=== PATIENT | female | born 2000 | race Native Hawaiian/Other Pacific Islander ===

== ENCOUNTER → 2022-11-15 08:26 | Outpatient (CLI) | payer BC, SELFPAY ==
[2022-11-15 09:15] LABS: Add Manual Diff / Slide Review NO; Basophils Absolute Auto 100 /uL (0-100); Basophils Percent Auto 1.1 % (0-2); Eosinophils Absolute Auto 100 /uL (0-450); Eosinophils Percent Auto 2.2 % (2-4); Hemoglobin 11.2 g/dL (12.0-16.0); Lymphocytes Absolute Auto 1600 /uL (1100-4500); Lymphocytes Percent Auto 24.8 % (25-40); Mean Corpuscular HGB Conc 31.2 % (30-36); Mean Corpuscular Hemoglobin 22.7 PG (26-34); Mean Corpuscular Volume 72.8 fL (80-100); Monocytes Absolute Auto 400 /uL (0-900); Monocytes Percent Auto 6.8 % (3-14); Neutrophils Absolute Auto 4200 /uL (1500-7000); Neutrophils Percent Auto 65.1 % (50-75); Platelet Count 369 X10^3/uL (150-400); Red Blood Cell Count 4.95 X10^6/uL (4.0-5.2); Red Cell Distribution Width 15.7 % (11.6-14.8); White Blood Cell Count 6.4 X10^3/uL (4.5-11.0)
[2022-11-15 09:58] LABS: Alanine Aminotransferase 15 IU/L (<35); Albumin 4.5 g/dL (3.5-5.0); Albumin Globulin Ratio 1.3 (1.0-2.8); Alkaline Phosphatase 47 U/L (38-126); Aspartate Aminotransferase 24 IU/L (14-36); BUN Creatinine Ratio 33.3 (6-22); Bilirubin Total 0.5 mg/dL (0.2-1.3); Blood Urea Nitrogen 18 mg/dL (7-17); Carbon Dioxide 27 mmol/L (22-32); Chloride 103 mmol/L (98-107); Cholesterol 185 mg/dL (140-199); Estimated Glomerular Filt Rate > 60 mL/min (>60); Globulin 3.5 g/dL (1.7-4.1); Glucose 92 mg/dL (70-100); HDL Cholesterol 73 mg/dL (40-60); HEMOLYSIS 24 (0-50); LDL Cholesterol Calculated 102 mg/dL (<100); Potassium 4.5 mmol/L (3.4-5.1); Sodium 138 mmol/L (137-145); Triglycerides 49 mg/dL (35-150)
[2022-11-15 10:27] LABS: TSH w/ Reflex to FT4 1.08 uIU/mL (0.47-4.68)
== END ==
PROVIDERS: PCP Family Medicine; Referring Provider Family Medicine; Visit Provider Family Medicine
DX: Z00.00 Encounter for general adult medical examination without abnormal findings (principal); N92.6 Irregular menstruation, unspecified
CPT/HCPCS: 36415; 80053; 80061; 84443; 85025

== ENCOUNTER → 2023-01-23 08:57 | Outpatient (CLI) | payer BC, SELFPAY ==
--- NOTE | 2023-01-23 08:58 | DI.US.S_ITS ---
PROCEDURE: US OB <= 14 WEEKS FETUS INDICATIONS: DATES OUTSIDE/PRIOR DATING DATA: Last menstrual period (LMP): 11/17/2022. LMP-based estimated date of delivery (DAYSI): 08/24/2023. First dating scan (date and location): 01/23/2023. Estimated date of delivery (DAYSI) from first dating scan: 08/24/2023. The calculations are made using the working DAYSI of 08/24/2023. TECHNIQUE: Real-time scanning was performed of the fetus and maternal pelvic organs, with image documentation. Endovaginal scanning was also performed to better visualize the fetus and maternal ovaries. COMPARISON: None. FINDINGS: Embryo: [place]-rump length 2.7 cm corresponds with a 9 week 4 day gestation Heart rate: 158 beats per minute Maternal organs: Ovaries corpus luteum cyst noted on the right. IMPRESSION: Single live intrauterine consistent with a 9 week 4 day gestation. Approved by: Forrest Kim M.D. on 01/23/2023 at 16:07
== END ==
PROVIDERS: PCP Family Medicine; Referring Provider Obstetrics & Gynecology; Visit Provider Obstetrics & Gynecology
DX: Z34.01 Encounter for supervision of normal first pregnancy, first trimester (principal); Z3A.09 9 weeks gestation of pregnancy
CPT/HCPCS: 76801; 76817

== ENCOUNTER → 2023-02-13 15:58 | Outpatient (CLI) | payer BC, SELFPAY ==
[2023-02-13 16:17] LABS: Specimen Label Y
[2023-02-13 16:47] LABS: Add Manual Diff / Slide Review NO; Basophils Absolute Auto 100 /uL (0-100); Basophils Percent Auto 0.7 % (0-2); Eosinophils Absolute Auto 100 /uL (0-450); Hemoglobin 12.3 g/dL (12.0-16.0); Lymphocytes Absolute Auto 1700 /uL (1100-4500); Lymphocytes Percent Auto 16.8 % (25-40); Mean Corpuscular HGB Conc 33.3 % (30-36); Mean Corpuscular Volume 81.2 fL (80-100); Monocytes Absolute Auto 700 /uL (0-900); Monocytes Percent Auto 6.5 % (3-14); Neutrophils Absolute Auto 7800 /uL (1500-7000); Platelet Count 273 X10^3/uL (150-400); Red Blood Cell Count 4.55 X10^6/uL (4.0-5.2); Red Cell Distribution Width 17.5 % (11.6-14.8); White Blood Cell Count 10.4 X10^3/uL (4.5-11.0)
[2023-02-14 08:11] LABS: RPR Screen Non Reactive (Non Reactive)
[2023-02-14 09:40] LABS: Varicella IgG Antibody 590 index (Immune >165)
[2023-02-16 17:28] LABS: Hepatitis B Surface Antigen NEGATIVE s/c (NEGATIVE); Rubella Antibody IgG 53.8 IU/mL (>15)
[2023-02-16 17:46] LABS: HIV 1 & 2 Ab/Ag 4th Gen Combo NEGATIVE (NEGATIVE); Hep C Virus Ab w/Reflex Quant NEGATIVE s/c (NEGATIVE)
== END ==
PROVIDERS: PCP Family Medicine; Referring Provider Obstetrics & Gynecology; Visit Provider Obstetrics & Gynecology
DX: Z34.01 Encounter for supervision of normal first pregnancy, first trimester (principal)
CPT/HCPCS: 36415; 80055; 86787; 86803; 86850; 86900; 86901; 87086; 87389

== ENCOUNTER → 2023-03-13 13:54 | Outpatient (CLI) | payer BC, SELFPAY ==
[2023-03-15 21:29] LABS: AFP Value 37.4 ng/mL (.); Gest Age on Col Date 16.6 weeks (.); Insulin Dep Diabetes No (.); OSBR Risk 1IN 10000 (.); Results Report (.); Test Results *Screen Negative* (.)
[2023-03-16 13:47] LABS: PDF SCANNED
== END ==
PROVIDERS: PCP Family Medicine; Referring Provider Obstetrics & Gynecology; Visit Provider Obstetrics & Gynecology
DX: Z34.92 Encounter for supervision of normal pregnancy, unspecified, second trimester (principal)
CPT/HCPCS: 82105

== ENCOUNTER → 2023-04-18 12:09 | Outpatient (CLI) | payer BC, SELFPAY ==
--- NOTE | 2023-04-18 12:10 | DI.US.S_ITS ---
PROCEDURE: US OB >= 14 WEEKS FETUS INDICATIONS: ANATOMY OUTSIDE/PRIOR DATING DATA: Last menstrual period (LMP): 11/17/2022. LMP-based estimated date of delivery (DAYSI): 08/24/2023. First dating scan (date and location): 01/23/2023. Estimated date of delivery (DAYSI) from first dating scan: 08/24/2023. The calculations are made using the clinical DAYSI of 08/24/2023. TECHNIQUE: Real-time scanning was performed of the fetus, with image documentation and biometric measurements. Endovaginal scanning: No COMPARISON: None. FINDINGS: General: A single living intrauterine gestation is present. Presentation: Breech. Placenta: Placental position is fundal , without previa. Amniotic fluid index: 13.7 cm, normal range is 5-24 cm. Single deepest vertical pocket is 4.8 cm. heart rate: 139 beats per minute. Maternal cervical canal: 3.1 cm long. Normal lower limit is 2.5 cm. biometrics: Biparietal diameter: 5.0 cm, 21 week 1 day Head circumference: 19.7 cm, 21 week 6 day Abdominal circumference: 17.3 cm, 22 week 1 day Femur length: 3.5 cm, 21 week 1 day Clinically estimated gestational age: 21 week 5 day Composite gestational age from present scan: 21 week 5 day Estimated weight and percentile: 445 g, 44th percentile Anatomic survey: Neuro: Ventricles are non-dilated at less than 10 mm. Cisterna magna is normal at 3-11 mm. Cerebellum is normal in size and morphology. Nuchal skin fold: Normal at less than 6 mm between 14-21 weeks gestational age. Face: Nose and lips, facial profile are normal. Spine: No evidence for spina bifida. Heart: 4-chambered heart is present, with normal ventricular outflow tracts. Diaphragm: Diaphragm is intact. Stomach: Left-sided stomach is present. Kidneys: No hydronephrosis. Normal is less than 5 mm in 2nd trimester, less than 7 mm in 3rd trimester. Cord: 3-vessel cord has orthotopic insertion. Bladder: Normal in size. Extremities: All 4 extremities identified. IMPRESSION: Single live intrauterine consistent with a 21 week 5 day gestation. Normal anatomic survey Approved by: Forrest Kim M.D. on 04/18/2023 at 17:44
== END ==
PROVIDERS: PCP Family Medicine; Referring Provider Obstetrics & Gynecology; Visit Provider Obstetrics & Gynecology
DX: Z34.02 Encounter for supervision of normal first pregnancy, second trimester (principal); Z3A.21 21 weeks gestation of pregnancy
CPT/HCPCS: 76811

== ENCOUNTER → 2023-05-15 11:33 | Outpatient (CLI) | payer BC, SELFPAY ==
[2023-05-15 13:34] LABS: Hematocrit 36.8 % (36-46); Hemoglobin 12.4 g/dL (12.0-16.0)
[2023-05-15 14:50] LABS: GTT (PREG) 1 Hour PP 50gm Dose 93 mg/dL (76-139)
== END ==
PROVIDERS: PCP Family Medicine; Referring Provider Obstetrics & Gynecology; Visit Provider Obstetrics & Gynecology
DX: Z34.02 Encounter for supervision of normal first pregnancy, second trimester (principal); Z3A.26 26 weeks gestation of pregnancy
CPT/HCPCS: 36415; 82950; 85014; 85018

== ENCOUNTER → 2023-07-31 13:53 | Outpatient (CLI) | payer BC, SELFPAY ==
[2023-08-01 12:47] LABS: Strep Grp B PCR NEG for Grp B Strep
== END ==
PROVIDERS: PCP Family Medicine; Visit Provider Obstetrics & Gynecology
DX: Z34.03 Encounter for supervision of normal first pregnancy, third trimester (principal); Z3A.36 36 weeks gestation of pregnancy
CPT/HCPCS: 87653

== ENCOUNTER 2023-08-19 22:58 | Inpatient (IN) | payer BC, SELFPAY ==
[2023-08-19 23:03] VITALS: BP 107/70
[2023-08-19 23:53] LABS: Add Manual Diff / Slide Review NO; Basophils Absolute Auto 100 /uL (0-100); Basophils Percent Auto 0.9 % (0-2); Eosinophils Absolute Auto 100 /uL (0-450); Eosinophils Percent Auto 0.7 % (2-4); Hematocrit 42.5 % (36-46); Lymphocytes Absolute Auto 1700 /uL (1100-4500); Lymphocytes Percent Auto 16.4 % (25-40); Mean Corpuscular Hemoglobin 27.9 PG (26-34); Mean Corpuscular Volume 84.5 fL (80-100); Monocytes Absolute Auto 900 /uL (0-900); Neutrophils Absolute Auto 7400 /uL (1500-7000); Platelet Count 279 X10^3/uL (150-400); Red Blood Cell Count 5.03 X10^6/uL (4.0-5.2); Red Cell Distribution Width 14.4 % (11.6-14.8); White Blood Cell Count 10.2 X10^3/uL (4.5-11.0)
[2023-08-20] MEDS: ONDANSETRON 4 MG/2 ML INJ IV (01:15)
[2023-08-20] MEDS: LACTATED RINGERS 1,000 ML 100 ML IV ×2 (01:18→01:19)
--- NOTE | 2023-08-20 01:43 | PM.AN.REGBLK ---
Regional Block Pre-procedure Procedure: Continuous Lumbar Epidural for L&D Attending OB provider: Isela Chowdary PMH/ROS narrative: 38/4 healthy 23yo female. Hx: No personal or family history of anesthesia problems. PSH/Anesthesia history narrative: No PSH, no anesthesia reaction in the family. ASA Class: II Labs: Hct 42.5 % (36-46) 08/19/23 23:35 Plt Count 279 X10^3/uL (150-400) 08/19/23 23:35 Medications: Current Medications Generic Name Dose Route Start Last Admin Trade Name Freq PRN Reason Stop Dose Admin Calcium Carbonate 1,000 mg 08/19/23 23:22 Calcium Carbonate 500 Mg Tab PO Q4HR PRN Dyspepsia Carboprost Tromethamine 250 mcg 08/19/23 23:22 Carboprost 250 Mcg/Ml Ampul IM Q90M PRN Bleeding Diphenhydramine HCl 25 mg 08/20/23 01:39 Diphenhydramine 50 Mg/Ml Vial IV Q10M PRN Pruritis Ephedrine Sulfate 5 mg 08/20/23 01:39 Ephedrine 50 Mg/Ml Vial IV Q5M PRN Blood pressure decrease more than 20% of baseline. Fentanyl 50 mcg 08/19/23 23:22 Fentanyl 100 Mcg/2 Ml Inj IV Q1H PRN Pain, Moderate (4-6) Lactated Ringer's 1,000 mls @ 100 mls/hr 08/19/23 23:30 08/20/23 01:19 Lactated Ringers IV 100 mls/hr CONT LELA Administration Oxytocin/Lactated Ringer's 30 unit in 500 mls @ 200 mls/hr 08/19/23 23:22 Oxytocin Premix IV CONT PRN Bleeding Protocol Tranexamic Acid 1,000 mg/ 100 mls @ 200 mls/hr 08/19/23 23:22 Sodium Chloride IV NOW PRN Bleeding FENT 2MCG/ML BUPIV 0.125% EPI 200 mcg in 100 mls @ 6 mls/hr 08/20/23 00:30 Fentanyl/Bupiv/Ns 2mcg/Ml - 0.125% EPIDURAL CONT LELA FENT 2MCG/ML BUPIV 0.125% EPI 200 mcg in 100 mls @ 3 mls/hr 08/20/23 01:45 Fentanyl/Bupiv/Ns 2mcg/Ml - 0.125% EPIDURAL CONT LELA Lidocaine HCl 20 ml 08/19/23 23:22 Lidocaine 1% 20 Ml INJ INTRA-OP PRN Post Delivery Methylergonovine Maleate 0.2 mg 08/19/23 23:22 Methylergonovine 0.2 Mg Tablet PO Q6HR PRN Heavy Bleeding Methylergonovine Maleate 0.2 mg 08/19/23 23:22 Methylergonovine 0.2 Mg/Ml Vial IM NOW PRN Bleeding Misoprostol 800 mcg 08/19/23 23:22 Misoprostol 200 Mcg Tablet CA NOW PRN Bleeding Misoprostol 400 mcg 08/19/23 23:22 Misoprostol 200 Mcg Tablet SL NOW PRN Bleeding Nalbuphine HCl 2.5 mg 08/20/23 01:39 Nalbuphine 20 Mg/Ml Ampul IV Q10M PRN Pruritis Naloxone HCl 0.2 mg 08/19/23 23:22 Naloxone 0.4 Mg/Ml Vial IV Q2MIN PRN Opiate Reversal Naloxone HCl 0.4 mg 08/20/23 00:18 Naloxone 0.4 Mg/Ml Vial IV Q2MIN PRN Opiate Reversal Ondansetron HCl 4 mg 08/19/23 23:22 08/20/23 01:15 Ondansetron 4 Mg/2 Ml Inj IV 4 mg Q4HR PRN Administration Nausea And Vomiting Oxytocin 10 unit 08/19/23 23:22 Oxytocin 10 Unit/Ml Vial IM NOW PRN Bleeding Allergies: Allergies Allergy/AdvReac Type Severity Reaction Status Date / Time No Known Drug Allergies Allergy Unverified 08/14/23 09:11 Procedure Insertion date: 08/20/23 Insertion time: 00:43 Prep/Local: betadine x3 and 1% lidocaine Interspace: L3-L4 Patient position: sitting Needle: 18 gauge [place] Loss of resistance with: saline (+Air) MARCIO at (cm): 7 Catheter placed at SKIN (cm): 14 Catheter in SPACE (cm): 7 Insertion: No CSF, No Blood, No Paresthesia with insertion, No Paresthesia with injection and No Test dose reaction Initial Medications TEST DOSE time: 00:43 BOLUS DOSE time: 00:44 BOLUS DOSE (mL): 3 BOLUS DOSE med: other (2% Lidocaine) Infusion INFUSION: 0.125% bupivacaine and with fentanyl 2 mcg/mL Initial rate (mL/hr): 3 Subsequent interventions: 0108: Ephedrine 10mg for hypotension. Post-procedure Anesthesia date START: 08/20/23 Anesthesia time START: 00:01 Anesthesia date END: 08/20/23 Anesthesia time END: 05:34 Post-procedure Anesthesia Assessment: Yes CV function: HR/BP stable, Yes Resp function: RR/sat/airway adequate, Yes Post-op hydration adequate, Yes Pain control adequate, Yes Nausea & vomiting absent, Yes Temperature > 36 C, Yes Mental status appropriate and Yes Anesthesia complications
[2023-08-20] MEDS: OXYTOCIN PREMIX 30 UNIT/500 ML PLAST..BAG 200 UNIT IV (05:35)
[2023-08-20] MEDS: LIDOCAINE 1% 20 ML INJ (05:40)
--- NOTE | 2023-08-20 06:03 | P.PCNOB_ITS ---
Labor & Delivery Delivery date: 08/20/23 Intrapartal Events: None Cervical ripening method: none Induction method: none Delivery monitor: external FHT and external uterine Route of delivery: Episiotomy description: None L&D Laceration Description: Perineal - 2nd Degree Quantitative Blood Loss: 200 Anesthesia Type: Epidural Complications: None Narrative: PROCEDURE: at 39w3d presented in active labor and was admitted to Labor and Delivery. The patient progressed through the 1st stage over 10.5 hours. Pt had SROM with clear fluid. Pain was controlled with an epidural. The patient progressed through the 2nd stage over 1 hour and delivered a viable female infant with APGARs 7/9 at 5:34 via without complications. The cord was cut and clamped after it stopped pulsating. The placenta delivered with gentle cord traction, and appeared complete. The perineum and vagina were inspected with 2nd degree perineal laceration repaired with 2-O Vicryl. Needle and sponge counts were correct.? The vagina was inspected and no items we re left in situ. Abida was doing well with Rona, her and her , Zack, at bedside. PREPROCEDURE DIAGNOSIS: Intrauterine at 39w3d GBS negative RH positive POSTPROCEDURE DIAGNOSIS: Intrauterine at 39w3d, delivered Same as preprocedure [place] Baby 1: Infant gender: Female Presentation: vertex Position: Right Occiput Anterior Placenta delivery description: Spontaneous Cord Vessel Description: 3 Vessels score (1 min): 7 score (5 min): 9 weight: 6 lb 12.538 oz Plan for aftercare: Routine care
--- NOTE | 2023-08-20 06:03 | P.HPOB_ITS ---
OB HPI Date/Time Date of admission: 08/20/23 Date Patient Seen: 08/20/23 History of Present Condition Chief complaint: Labor & Delivery DAYSI Calculator 2 Estimated Delivery Date Method Current WG Current Estimate 08/24/23 LMP (Certain) 39w 3d Other Estimates 08/24/23 Ultrasound #1 39w 3d Estimated Gestational Age (weeks): 39w3d : 1 Para: 0 Narrative: Pt is a 23yo at 39w3d here with regular contractions. Pt reports contractions starting earlier this evening, increasing in intensity since then. No bleeding or LOF. She is feeling her baby move regularly. No complications with her . care: good care, initiated at week # (12) and pounds weight gain (45) Dating criteria OB: LMP confirmed by 1st trimester US Ultrasounds: normal 1st trimester US and normal mid trimester US Obstetrical complications: none Medical complications OB: none Preadmission Labs Last OB Lab Results: 2 Blood Type A Positive 08/19/23 23:35 Antibody Screen Negative 08/19/23 23:35 Hematocrit 42.5 % (36-46) 08/19/23 23:35 Hemoglobin 14.0 g/dL (12.0-16.0) 08/19/23 23:35 Hepatitis B Surface Antigen Negative s/c (NEGATIVE) 02/13/23 16 :02 Hepatitis C Antibody Negative s/c (NEGATIVE) 02/13/23 16:02 Rubella Antibody 53.8 IU/mL (>15) 02/13/23 16:02 Varicella-Zoster IgG Antibody 590 index (Immune >165) 02/13/23 16:02 Glucose 1 Hour 93 mg/dL (76-139) 05/15/23 12:54 Group B Streptococcus (PCR) Neg for grp b strep 07/31/23 13:53 -: Urine: negative Genetic Screens: Cell-free DNA: Normal and Alpha-fetoprotein: Normal External Labs -: Urine: negative Evaluation Evaluation Baseline heart rate: 120 Variability: Moderate (11-25) monitor accelerations: Present Monitor Decelerations: Absent Contraction Frequency (minutes): 2 Uterine Contraction Intensity: Strong/Firm Status: Category l Dilation (cm): 10 Effacement (%): 100 station: +2 [facility] Medical History (Updated 08/14/23 @ 09:42 by Low Sam MD) Frequent nosebleeds Rash Eczema (~2007) RBC microcytosis Surgical History (Updated 03/12/23 @ 19:39 by Saranya Borges) Anesthesia [place] teeth removed (~2015) Family History (Updated 03/12/23 @ 19:41 by Saranya Borges) Father Diabetes mellitus Hypertension Hyperlipidemia Grandfather Diabetes mellitus Hypertension Hyperlipidemia Grandmother History of heart disease Hypertension Stroke Hyperlipidemia Mother Iron deficiency Hypertension Grandmother Hypertension Social History marital status: number of children: 0 household members: spouse lives independently: Yes caregiver/support person: Yes housing: house pets and animals: Yes education level: college (Associate degree) occupational status: employed (assistant production manager) current occupational exposures/hazards: No special saji needs: No travel history[place] seatbelt use: always helmet use: Yes water heater temp set < 120 deg: Yes working smoke detector in home: Yes fire extinguisher in home: Yes carbon monox detector in home: Yes firearms in home: Yes firearms unloaded and locked: Yes do you feel safe at home: Yes (answered in 's presence on speaker phone) Smoking Status: Never smoker second hand exposure: No alcohol intake: former (rarely when not ) substance use type: does not use during the past year weight has: remained stable well-balanced diet: about half the time daily servings fruits/ve-4 caffeine: Yes (soft drinks) Type(s) of exercise: walking (on her feet all day at work) and other (physical job) frequency: 5-6 times per week Meds Home Medications and Allergies Home Medications Medication Instructions Recorded Confirmed Type vitamins no.119-iron 1 tab PO DAILY #90 tabs 11/14/22 08/14/23 Rx fumarate 29 mg-folic acid 1 mg tablet Allergies Allergy/AdvReac Type Severity Reaction Status Date / Time No Known Drug Allergies Allergy Unverified 08/14/23 09:11 OB Exam Resp Effort & Inspection: normal respiratory effort Auscultation: clear to auscultation bilaterally Cardio Rate: regular rate Rhythm: regular rhythm Heart Sounds: S1 normal, S2 normal and no murmurs GI Inspection: non-distended Palpation: Yes soft and No tender Presentation: vertex Objective Labs 08/19/23 23:35 Labs: Laboratory Results - last 24 hr 08/19/23 23:35 WBC 10.2 RBC 5.03 Hgb 14.0 Hct 42.5 MCV 84.5 MCH 27.9 MCHC 33.0 RDW 14.4 Plt Count 279 Neut % (Auto) 73.0 Lymph % (Auto) 16.4 L [place] % (Auto) 9.0 Eos % (Auto) 0.7 L Baso % (Auto) 0.9 Neut # (Auto) 7400 H Lymph # (Auto) 1700 [place] # (Auto) 900 Eos # (Auto) 100 Baso # (Auto) 100 Blood Type A Positive Antibody Screen Negative Assessment and Plan Assessment and Plan Assessment and Plan narrative: Pt is a 23yo at 39w3d here in active labor. Rh positive, GBS negative. No complications with . - Expectant management, anticipate - pt will begin pushing - GBS negative, no prophylaxis indicated - FHT reassuring - Epidural in place for pain control
[2023-08-20] MEDS: ACETAMINOPHEN 325 MG TABLET 650 MG PO ×2 (13:08→20:39)
[2023-08-20] MEDS: IBUPROFEN 600 MG TABLET PO ×2 (13:09→20:39)
[2023-08-21] MEDS: ACETAMINOPHEN 325 MG TABLET 650 MG PO ×2 (04:34→10:40)
[2023-08-21] MEDS: IBUPROFEN 600 MG TABLET PO ×2 (04:35→10:38)
--- NOTE | 2023-08-21 08:41 | P.DS_ITS ---
Discharge Providers Provider Date of admission: 08/19/23 22:58 Discharge Date: 08/21/23 Primary care physician: Aditya Rodríguez DO Consults: 08/19/23 23:22 Consult to Anesthesiology Urgent Comment: Consulting Provider: Anesthesiologist Reason for consultation: Epidural 08/21/23 06:04 Consult to Record Center Coordinator Routine Comment: Discharge provider: Isela Chowdary MD Summary Hospital Course Date Patient Seen: 08/21/23 Diagnoses: Intrauterine at 39w3d GBS negative RH positive Hospital Course: The pt presented in active labor. She had SROM with clear fluid. She had an epidural for pain control. She progressed to complete and had an uncomplicated of a viable baby girl. A 2nd degree perineal laceration was repaired. , there were no complications. At the time of discharge she was voiding, ambulating, and passing flatus without difficulty. Her lochia was decreasing appropriately. Her pain was well controlled. She was with good latch. She will f/u in 6 weeks for check. She would like to use condoms for contraception. Peripartum Data Delivery Method: Natural Vaginal Laceration Description: Perineal - 2nd Degree Episiotomy description: None Procedures: Spontaneous vaginal delivery complications: none 1: Gender: Female Disposition of : home Time Spent with Patient Time attestation: Total time spent providing and/or coordinating discharge services: Objective Labs 08/19/23 23:35 Exam Narrative Exam Narrative: Gen: NAD, sitting comfortably in bed, appears well CV: RRR, no murmurs Resp: clear to auscultation bilaterally Abd: soft, appropriately tender, fundus firm and below the umbilicus, nondistended Ext: no edema Discharge Plan Discharge Plan Patient Disposition: Home Discharge orders & Medications Prescriptions: New acetaminophen 325 mg Tablet 650 mg PO Q6HR PRN (Reason: Pain, Mild (1-3)) Qty: 30 0RF docusate sodium 100 mg Capsule 100 mg PO DAILY Qty: 30 0RF ibuprofen 600 mg Tablet 600 mg PO Q6HR PRN (Reason: Pain, Mild (1-3)) Qty: 30 0RF Continued PNV 119-iron fum-folic acid 29 mg iron- 1 mg tablet 1 tab PO DAILY Qty: 90 3RF Follow up/Referrals: Aditya Rodríguez DO [Primary Care Provider] - Low Sam MD [Physician] - 10/02/23 10:30 am (Please check in at 10:15) Diet/Activity/Treatments Diet: Diet as Tolerated and Regular Skin/Wound/Dressing Care Report to your healthcare provider any signs of infection, such as:: chills, fever, increased pain and unusual drainage Visit Report/Discharge Packet Instructions: DI for Labor and Delivery, Vaginal Stand Alone Forms: Patient Portal/API, Stroke Signs & Symptoms Discharge Data Primary Care Provider: Aditya Rodríguez Discharges patient from system. Discharge Date/Time: 08/21/23 11:58
[2023-08-21 10:26] VITALS: BP 96/77; PULSE 81; RESP 14; TEMP 37.1
[2023-08-21] MEDS: DOCUSATE 100 MG CAPSULE PO (10:38)
[2023-08-21] MEDS: PRENATAL VIT,CALC/IRON/FOLIC 1 TABLET 1 TAB PO (10:38)
== END 2023-08-21 11:58 | disposition home or self-care (01) | DRG 807 ==
PROVIDERS: Admitting Provider Family Medicine; PCP Family Medicine; Referring Provider Family Medicine; Visit Provider Family Medicine
DX: O42.02 Full-term premature rupture of membranes, onset of labor within 24 hours of rupture (principal); O70.1 Second degree perineal laceration during delivery; Z37.0 Single live birth; Z3A.39 39 weeks gestation of pregnancy
CPT/HCPCS: 36415; 59050; 59400; 59409; 85025; 86850; 86900; 86901; G0379; J0171; J2405; J2590